=== PATIENT | female | born 1975 | race Caucasian/White ===

== ENCOUNTER 2017-02-26 21:54 | Emergency (ER) | payer OTHER ==
[~2017-02-26 21:54] MED LIST: CIPRO 500MG TA500 MG PO; IBUPROFEN800 M1 PO; OXYCODONE-ACET1 EACH PO; PYRIDIUM100 MG PO
[2017-02-26 22:00] VITALS: BP 122/80
--- NOTE | 2017-02-26 22:41 | RADIOLOGY REPORT ---
Indication: Fall EXAMINATION: Right knee and left wrist. FINDINGS: Right knee 4 views. Negative for acute fracture or dislocation. No effusion is seen. Left wrist 4 views. No evidence for an acute fracture or dislocation. IMPRESSION: No fracture or dislocation left wrist, right knee
--- NOTE | 2017-02-26 22:55 | ED UPPER/LOWER EXTREMITY COMPL ---
History of Present Illness General Chief Complaint: Fall Stated Complaint: PT FELL AND MIGHT HAVE BROKEN HER LEFT WRIST Source: patient Exam Limitations: no limitations Vital Signs & Intake/Output Vital Signs & Intake/Output Vital Signs Date Time Temp Pulse Resp B/P B/P Pulse O2 O2 Flow FiO2 Mean Ox Delivery Rate 02/26 2200 85 20 122/80 97 Allergies Coded Allergies: Sulfa (Sulfonamide Antibiotics) (Intermediate, VOMIT, RASH, DYSPNEA 02/26/17) Penicillins (RED BLOTCHES, HIVES 02/26/17) Reconcile Medications Melatonin (Unknown Strength) TABLET (Unknown Dose) PO PRN SUPPLEMENT ( Reported) Triage Note: PER PT WALKING DOG TRIPPED AND FELL NO LOC NO HEAD STRIKE, CO PAIN TO L WRIST AND KNEE, CURRENTLY ON MENSES. Triage Nurses Notes Reviewed? yes : No Patient currently breastfeeds: No HPI: This patient is a 42-year-old female who presented to the emergency department today for evaluation of left wrist pain and right knee pain. The patient reported that she was walking her dog when she tripped and fell on the curb. She reported the pain in her wrist and knee gets up to an 8 out of 10, is throbbing, nonradiating. No numbness or tingling in her extremities. The pain is constant and worse with certain movements. She denied any head strike or loss of consciousness. (ALEKSANDAR RICKETTS PA-C) Past History Travel History Traveled to [place] past 21 day No Medical History Any Pertinent Medical History? 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 No (ALEKSANDAR RICKETTS PA-C) Review of Systems Review of Systems Constitutional: Reports: no symptoms. EENTM: Reports: no symptoms. Respiratory: Reports: no symptoms. Cardiovascular: Reports: no symptoms. Gastrointestinal/Abdominal: Reports: no symptoms. Musculoskeletal: Reports: see HPI. Skin: Reports: no symptoms. Neurological/Psychological: Reports: no symptoms. All Other Systems: Reviewed and Negative (ALEKSANDAR RICKETTS PA-C) Physical Exam Physical Exam General Appearance: well developed/nourished, no apparent distress, alert, awake Comments: Well-developed well-nourished person in no acute distress HEENT: Normal EENT exam, head normocephalic/atraumatic Neck: Supple, no lymphadenopathy Back: Antalgic gait Respiratory: No respiratory distress. Speaking in full sentences Left wrist: No effusions overlying erythema or ecchymosis to the joint space. Range of motion of the wrist due to pain. Tenderness to palpation over the dorsum of the wrist. Capillary refill unable to be assessed due to pain. Small abrasion to the left palm. Radial pulse 2+ and strong Right knee: Abrasion to the anterior aspect of the knee. No bony or muscular deformities appreciated. Range of motion of the knee with limited due to pain. Tenderness to palpation over the patellar tendon. Neuro: Alert oriented x3, motor sensory normal, cranial nerves II through XII grossly intact. Skin: No appreciable rash on exposed skin, skin is warm and dry. Psych: Mood and affect is normal, memory and judgment is normal. (ALEKSANDAR RICKETTS PA-C) Progress Differential Diagnosis: compartment syndrome, contusion, dislocation, fracture, sprain, tendon injury Plan of Care: Orders Procedure Date/time Status Durable Medical Equipment 02/26 2300 Active Diagnostic Imaging: Viewed by Me: Radiology Read. Discussed w/RAD: Radiology Read. Radiology Impression: PATIENT: CICI SHANNON PRESENT AGE : 42 PATIENT ACCOUNT NO: [id number] : 73 LOCATION: [facility] ORDERING PHYSICIAN: ALEKSANDAR RICKETTS PA-C SERVICE DATE: 02/26/17 EXAM TYPE: RAD - XRY-KNEE COMPLETE RIGHT; XRY-WRIST COMPLETE-LEFT Indication: Fall EXAMINATION: Right knee and left wrist. FINDINGS: Right knee 4 views. Negative for acute fracture or dislocation. No effusion is seen. Left wrist 4 views. No evidence for an acute fracture or dislocation. IMPRESSION: No fracture or dislocation left wrist, right knee DICTATED BY: OUMAR LA MD DATE/TIME DICTATED:2235 RECENTERER:ENRIQUE DATE/TIME TRANSCRIBED:02/26/172235 CONFIDENTIAL, DO NOT COPY WITHOUT APPROPRIATE AUTHORIZATION. <Electronically signed in Other Vendor System> SIGNED BY: OUMAR LA MD 02/26/172240 (ALEKSANDAR RICKETTS PA-C) Departure Departure Disposition: HOME OR SELF CARE Condition: Stable Clinical Impression Primary Impression: Wrist sprain Qualifiers: Encounter type: initial encounter Laterality: left Qualified Code: S63.502A - Unspecified sprain of left wrist, initial encounter Secondary Impressions: Contusion Qualifiers: Encounter type: initial encounter Contusion area: lower leg Laterality: right Qualified Code: S80.11XA - Contusion of right lower leg, initial encounter Referrals: DORIE ESTRADA,BETY MARQUIS MD,JAXSON Purcell (PCP/Family) DAMON GARCIA MD Additional Instructions: Use the wrist splint that was provided to you for extra support. Apply ice the affected areas for 15-20 minutes, 3-4 times a day. Gentle stretching. Weightbearing as tolerated. Elevate your wrist and knee when possible. You may take [id number] ibuprofen for pain and inflammation. You may call the pharmaceutical sales specialist or the hand specialist, information provided to this packet, for further evaluation. Return for any worsening symptoms or concerns. Departure Forms: Customer Survey General Discharge Information (ALEKSANDAR RICKETTS PA-C) PA/TIP FIXER Co-Sign Statement Statement: ED Attending supervision documentation- [] I saw and evaluated the patient. I have also reviewed all the pertinent lab results and diagnostic results. I agree with the findings and the plan of care as documented in the PA's/TIP FIXER's documentation. [X] I have reviewed the ED Record and agree with the PA's/TIP FIXER's documentation. [] Additions or exceptions (if any) to the PAs/TIP FIXER's note and plan are summarized below: [] (OUMAR MENDOZA DO
[2017-02-26] MEDS ORDERED: MELATONIN1 M2 PO (23:00)
== END 2017-02-26 23:20 ==
LOC: ERH 21:54
DX: S63.502A Unspecified sprain of left wrist, initial encounter (principal); T14.8 Other injury of unspecified body region; W10.1XXA Fall (on)(from) sidewalk curb, initial encounter; Y93.K1 Activity, walking an animal; Y92.480 Sidewalk as the place of occurrence of the external cause
CPT/HCPCS: 73110-LT; 73562-RT